=== PATIENT | female | born 1985 | race Asian ===

== ENCOUNTER 2016-10-17 02:24 | Inpatient (IN) | payer OTHER, MEDICARE ==
[~2016-10-17] VITALS: Ht 160 cm; Wt 60.0 kg
--- NOTE | 2016-10-17 02:45 | NUR ---
31yo FEMALE TO TRIAGE W/FATHER WHO STATES "SHE HAS NOT SLEPT IN 3 D AND IS JUMPING FROM ONE SUBJECT TO ANOTHER"
--- NOTE | 2016-10-17 03:16 | ED PSYCHIATRIC COMPLAINT ---
History of Present Illness General Chief Complaint: Altered Mental Status Stated Complaint: PER FATHER PT AMS BH PT DENIES SI NOT SLEEPING Source: patient, family, old records Exam Limitations: clinical condition Vital Signs & Intake/Output Vital Signs & Intake/Output Vital Signs Date Time Temp Pulse Resp B/P Pulse O2 O2 Flow FiO2 Ox Delivery Rate 10/17 1509 91 18 115/65 98 Room Air 10/17 1258 97.8 98 16 127/64 96 Room Air 10/17 1018 98.6 58 16 125/88 99 Room Air 10/17 0613 97.9 89 16 128/73 97 10/17 0248 98.0 90 16 116/86 96 Room Air Allergies Coded Allergies: No Known Allergies (10/17/16) Triage Note: 31yo FEMALE TO TRIAGE W/FATHER WHO STATES "SHE HAS NOT SLEPT IN 3 D AND IS JUMPING FROM ONE SUBJECT TO ANOTHER"5 Triage Nurses Notes Reviewed? yes Onset: several days Duration: day(s):, constant, continues in ED, getting worse Timing: recent history Severity: severe Associated Symptoms: anxiety, impaired concentration, insomnia LMP (ages 10-50): unknown : No Patient currently breastfeeds: No HPI: Several days prior to admission father reports patient has had bizarre behavior thought pattern increased activity decreased sleep with history of bipolar disorder. There is no report of fever chills nausea vomiting diarrhea abdominal pain chest pain shortness of breath headache dysuria rash bleeding homicidal ideation. (MADONNA NOLASCO MD) Past History Travel History Traveled to [place] past 21 day No Medical History Any Pertinent Medical History? see below for history Psychiatric: bipolar disease Surgical History Surgical History: non-contributory Psychosocial History What is your primary language Other Tobacco Use: Never used Family History Hx Contributory? No (MADONNA NOLASCO MD) Review of Systems Review of Systems Constitutional: Reports: no symptoms. EENTM: Reports: no symptoms. Respiratory: Reports: no symptoms. Cardiovascular: Reports: no symptoms. GI: Reports: no symptoms. Genitourinary: Reports: no symptoms. Musculoskeletal: Reports: no symptoms. Skin: Reports: no symptoms. Neurological/Psychological: Reports: see HPI, cognitive dysfunction, confusion. Hematologic/Endocrine: Reports: no symptoms. Immunologic/Allergic: Reports: no symptoms. All Other Systems: Reviewed and Negative (MADONNA NOLASCO MD) Physical Exam Physical Exam General Appearance: well developed/nourished, alert, awake, anxious, severe distress Head: atraumatic, normal appearance Eyes: Bilateral: PERRL, EOMI. Ears, Nose, Throat: normal pharynx, normal ENT inspection, hearing grossly normal Neck: normal inspection, supple Respiratory: normal breath sounds Cardiovascular: regular rate/rhythm Gastrointestinal: soft, non-tender Extremities: normal range of motion Neurological/Psychiatric: no motor/sensory deficits, awake, agitated, alert, anxious, tonguer II-XII nml as tested Appearance/Memory/Insight: disheveled, impaired insight Behavoir/Eye Contact/Speech: uncooperative, compulsive, increased rate of speech Thoughts/Hallucinations: no apparent hallucination, flight of ideas Skin: intact, normal color, warm/dry SAD PERSONS Done? patient not suicidal (GAURAV BRINK,MADONNA) Progress Differential Diagnosis: drug intoxication, drug overdose, drug withdrawal, electrolyte abnormality, hypoglycemia Plan of Care: Orders Procedure Date/time Status Regular Diet 10/17 B Active Admit to inpatient psych 10/17 163 Active Patient Safety Monitor 10/18 303 Active URINE DRUG SCREEN FOR ER ONLY 10/18 303 Complete ETHANOL 10/18 303 Complete COMPREHENSIVE METABOLIC PANEL 10/18 303 Complete CBC WITHOUT DIFFERENTIAL 10/18 303 Complete ED CRISIS PSYCH CONSULT 10/18 303 Active Laboratory Tests 10/17/16 1021: Urine Opiates Screen < 100.00, Methadone Screen < 40, Barbiturate Screen < 60, Ur Phencyclidine Scrn < 6.00, Amphetamines Screen < 100, U Benzodiazepines Scrn < 85, Urine Cocaine Screen < 50, Urine Cannabis Screen < 5.00 10/17/16 0355: Anion Gap 9, Estimated GFR > 60, BUN/Creatinine Ratio 20.0, Glucose 95, Calcium 9.6, Total Bilirubin 0.4, AST 29, ALT 34, Alkaline Phosphatase 55, Total Protein 7.5, Albumin 4.1, Globulin 3.4, Albumin/Globulin Ratio 1.2, CBC w Diff NO MAN DIFF REQ, RBC 4.09 L, MCV 93.8, MCH 31.8 H, RDW 12.7, MPV 8.1, Gran % 56.9, Lymphocytes % 28.8, Monocytes % 9.8 H, Eosinophils % 3.8, Basophils % 0.7, Absolute Granulocytes 4.4, Absolute Lymphocytes 2.2, Absolute Monocytes 0.7 H, Absolute Eosinophils 0.3, Absolute Basophils 0.1, PUBS MCHC 33.9, Serum Alcohol < 10.0 10/17/2016 7:16:09 AM Patient signed out to me by Dr. Nolasco. Pending crisis evaluation and disposition. (TEE GANT MD) Hand-Off Endorsed To: TEE GANT MD Endorsed Time: 0700 Pending: consult, other (drug screen) (MADONNA NOLASCO MD) Departure Departure Disposition: STILL A PATIENT Condition: Stable Clinical Impression Primary Impression: Bipolar disorder with severe paola Referrals: UNKNOWN (PCP/Family) Departure Forms: Customer Survey General Discharge Information (MADONNA NOLASCO MD) Departure Time of Disposition: 1634 Psych Admission Note Psychiatric Admission: I have seen and evaluated ANAY GARCIA. I have also reviewed all the pertinent lab results and diagnostic results. KATHLEEN GARCIAANNA will be admitted to our inpatient Psychiatric unit for treatment and care. (TEE GANT MD)
--- NOTE | 2016-10-17 03:30 | NUR ---
ATTEMPT TO GIVE MEDS PO, PT SPIT THEM BACK INTO GLASS OF WATER
--- NOTE | 2016-10-17 03:40 | NUR ---
MEDICATED WITRH HALDOL,BENADRYL,AND ATIVAN IM
[2016-10-17 04:10] LABS: ABSOLUTE BASOPHIL COUNT 0.1 /CUMM (0.0-0.2); ABSOLUTE EOSINOPHIL COUNT 0.3 /CUMM (0.0-0.7); ABSOLUTE GRANULOCYTE CT 4.4 /CUMM (1.4-6.5); ABSOLUTE LYMPH COUNT 2.2 /CUMM (1.2-3.4); ABSOLUTE MONOCYTE COUNT 0.7 /CUMM (0.10-0.60); BASOPHIL % 0.7 % (0.0-2.0); EOSINOPHIL % 3.8 % (0-5); GRANULOCYTE % 56.9 % (42.2-75.2); HEMATOCRIT 38.4 % (37-47); MEAN CORPUSCULAR HGB 31.8 PG (27.0-31.0); MEAN CORPUSCULAR HGB CONC 33.9 G/DL (33.0-37.0); MEAN CORPUSCULAR VOLUME 93.8 FL (81.0-99.0); MEAN PLATELET VOLUME 8.1 FL (7.4-10.4); PLATELET COUNT 312 /CUMM (130-400); RBC DISTRIBUTION WIDTH 12.7 % (11.5-14.5); RED BLOOD CELL CT 4.09 /CUMM (4.20-5.40); WHITE BLOOD CELL COUNT 7.7 /CUMM (4.8-10.8)
--- NOTE | 2016-10-17 04:50 | NUR ---
SLEEPING AT PRESENT
--- NOTE | 2016-10-17 06:14 | NUR ---
continues to sleep
--- NOTE | 2016-10-17 07:44 | NUR ---
PT CONTINUES TO SLEEP COMFORTABLY. WILL CONTINUE TO MONITOR
--- NOTE | 2016-10-17 09:16 | NUR ---
PT WAKES UP WHEN CALLED, "MY NAME IS SUZZY" WHEN ASKED. PT GOES BACK TO SLEEP
--- NOTE | 2016-10-17 10:27 | NUR ---
PT WOKEN UP. ORIENTED TO PERSON. PT NEEDED TO BE ORIENTED TO PLACE AND DATE. SHE DOES NOT RECALL SERIES OF EVENTS PRIOR TO COMING TO THE ER. SHE REMEMBERS HER DAD BEING WITH HER. PT HELPED TO THE RESTROOM, UA SENT. NOW EATING HER BREAKFAST.
--- NOTE | 2016-10-17 10:41 | NUR ---
PT IS NOW RECALLING MORE ABOUT YESTERDAY. SHE SAYS SHE HASN'T BEEN ABLE TO SLEEP FOR A FEW DAYS AND HER DAD WAS WORRIED. SHE STATES SHE MUST BE EXCITED ABOUT THE [place]ART[place] RACE OF THURSDAY. PT STATES SOMETIMES SHE FORGETS TO TAKE HER MEDS FOR HER BIPOLAR DISORDER BECAUSE SHE GOES TO HER PARENTS HOUSE AND FORGETS TO BRING THEM. PT IS NOW CALM AND WANTS TO GO HOME.
--- NOTE | 2016-10-17 11:15 | NUR ---
ASSUMED CARE OF THIS PATIENT, WHO IS CURRENTLY SLEEPING WITH SITTER PRESENT FOR SAFETY. WILL CONTINUE TO MONITOR
--- NOTE | 2016-10-17 12:58 | NUR ---
PT UP AND TO BATHROOM WITH STEADY GAIT. EATING LUNCH AT THIS TIME, TOLERATING WELL. OFFERS NO PHYSICAL COMPLAINTS. REEDUCATED AND REORIENTED TO PLAN AND MEDS RECEIVED PREVIOUSLY. SITTER PRESENT FOR SAFETY AND VSS. CALM, COOPERATIVE, AND APPROPRIATE FOR SETTING
--- NOTE | 2016-10-17 14:45 | NUR ---
PALLET STONE POSITIONER PRESENT FOR EVALUATION
--- NOTE | 2016-10-17 14:55 | ED PSYCH CRISIS CONSULTATION ---
Crisis Consult Basic Assessment Date of Consult: 10/17/16 Responsible Person/Accompanied By: self Insurance Authorization: Insurance #1: Insurance name: MEDICARE A Phone number: Policy number: [id number] Group number: Authorization number: ED Provider: Patient's ED Provider: MADONNA NOLASCO MD Primary Care Physician: Patient's PCP: UNKNOWN PCP's Phone Number: Current Psychiatrist: Alivia Mcclure [facility] Chief Complaint: Altered Mental Status Patient's Quote: "I was up all night making tea shirts for the [employer]ien green party." Present Illness: Pt is a 31yo female who was brought to the ED by her father Aly Anthony due to concern that she has not slept for 3 night in a row. When pt arrived to the ED staff noted that pt was jumping from one topic to another and was very disorganized.She was medicated with Haldol, Ativan, and Benadryl IM because she spit out her meds in her water. Upon Crisis eval pt was lithargic, but provided little insight into her sx stating that she was up all night for 3 days because she had to make tea shirts for her [employer] green party this weekend. she admitted that she has forgotten to take her psych meds because she has been staying with her parents. Pt denies any SI/HI/SH and requested discharge. Crisis called pt's parents and her father was no home, but Pt's Mother Shira explained that pt was up all night last night rearranging the kitchen and living room. she has been very disorganized and starts things and does not finish. She reports that pt has not been taking her psych meds because she thinks that they don't help. Mom reports that when pt takes her meds she is stable and functions well. Mom also informed that 2 weeks ago pt was so depressed that she barely got out of bed. Mom expresses she is concerned for pt and would like her to be admitted for stabilization. This clinician also spoke with Alivia Hancock APRN who is pt's out pt prescriber from [facility]. She reported that she saw pt 2 weeks ago and she was severely depressed and was having difficulty getting out of bed, so she made some medication changes and she faxed her meds list to crisis and it has been placed in the paper chart. She expressed concern about pt's decompensation stating she has been becoming more and more unstable over the past few weeks and thinks she would like her to be admitted for inpt psych tx. Case reviewed with Dr. Polo of psychiatry and pt will be admitted to [facility]. Pt refused admission and cried hysterically begging not to be admitted because she has a sebastien [employer] Party tomorrow. Therefore the diagnostic assessment is limited and social hx was not able to be done at time of admission. Dr. Polo advised for pt to be placed on a PEC for grave disability. Patient's Address: [address] [place] [address] Other Phone Number: Who Do You Live With? Patient/Self Family/Informants Interviewed: Mom and Care Allergies - Coded Allergies: No Known Allergies (10/17/16) Laboratory Results: Laboratory Tests 10/17/16 1021: Urine Opiates Screen < 100.00, Methadone Screen < 40, Barbiturate Screen < 60, Ur Phencyclidine Scrn < 6.00, Amphetamines Screen < 100, U Benzodiazepines Scrn < 85, Urine Cocaine Screen < 50, Urine Cannabis Screen < 5.00 10/17/16 0355: Anion Gap 9, Estimated GFR > 60, BUN/Creatinine Ratio 20.0, Glucose 95, Calcium 9.6, Total Bilirubin 0.4, AST 29, ALT 34, Alkaline Phosphatase 55, Total Protein 7.5, Albumin 4.1, Globulin 3.4, Albumin/Globulin Ratio 1.2, CBC w Diff NO MAN DIFF REQ, RBC 4.09 L, MCV 93.8, MCH 31.8 H, RDW 12.7, MPV 8.1, Gran % 56.9, Lymphocytes % 28.8, Monocytes % 9.8 H, Eosinophils % 3.8, Basophils % 0.7, Absolute Granulocytes 4.4, Absolute Lymphocytes 2.2, Absolute Monocytes 0.7 H, Absolute Eosinophils 0.3, Absolute Basophils 0.1, PUBS MCHC 33.9, Serum Alcohol < 10.0 Past History Past Medical History Psychiatric: bipolar disease Past Surgical History Surgical History: non-contributory Psychosocial History Strengths/Capabilities: supportive family, engaged in out pt tx Physical Limitations (Interventions): none reported Psychiatric Treatment History Psych Treatment Psychiatric Treatment Yes Inpatient Treatment Yes Outpatient Treatment Yes Location of Treatment [facility], are out pt Reason for Treatment Bipolar Dates of Treatment [facility] 2006 and 2008, Care currently Response to Treatment variable Diagnosis by History: Bipolar Substance Use/Abuse History Drug Use/Abuse Substances Used/Abused No Substance Abuse Treatment Substance Abuse Treatment Past Substance Abuse [place] No Inpatient Treatment No Outpatient Treatment No Current Mental Status Mental Status Orientation: Person, Place, Situation Affect: Anxious, Angry, Broad, Depressed, Labile, Manic, Sad, Variable Speech: Hyper-verbal, Mumbled Neuro-vegetative: Concentration Poor, Energy Increased, Hyperactivity, Sleep Disturbance Appearance Appearance- Dress/Hygiene: well groomed Behaviors Thought Process: Disorganized, Flight of Ideas, Irrational Thought Content: WNL Memory: WNL Insight: Poor SI/HI Risk Assessment Past Suicidal Ideation/Attempts No Current Suicidal Ideation/Att No Past Homicidal Ideation/Att: No Current Homicidal Ideation/Attempts No Degree of Intent: None Gravely Disabled: Lack of Insight, Poor Impulse Control, Poor Judgment Risk Factors: SA/MH hospitalized, poor impulse control, lack of outcome concern Lethality Ratin (mild) PTSD Checklist PTSD Done? pt unable to participate ED Management Sitter: Yes Restraints: No DSM5/PS Stressors/Medical Prob Diagnosis' (DSM 5, Stressors, Medical): Bipolar sev manic F31.13 Current GAF: 20 Departure Disposition Psych Medical Clearance Date: 10/17/16 Medically Cleared at: 1430 Time Started: 1430 Time Ended: 1530 Psychiatrist Consulted: Christ BRINK,Edward Date Disposition Established: 10/17/16 Time Disposition Established: 1529 Plan for Disposition - Modality: Inpatient Psychiatry Facility: [facility] Rationale for Disposition: safety and stabilization Type of IP Admission: PEC Referrals UNKNOWN (PCP/Family)
--- NOTE | 2016-10-17 16:03 | NUR ---
PER PROVIDER RELATIONS SPECIALIST MONSTER PT TO BE ADMITTED ON A PEC
--- NOTE | 2016-10-17 17:47 | IP CRISIS DIAG ASSESS PSYCH ---
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 When pt arrived to the ED staff noted that pt was jumping from one topic to another and was very disorganized.She was medicated with Haldol, Ativan, and Benadryl IM because she spit out her meds in her water. 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 she admitted that she has forgotten to take her psych meds because she has been staying with her parents. Pt denies any SI/HI/SH and requested discharge. Crisis called pt's parents and her father was no home, but Pt's Mother Shira explained that pt was up all night last night rearranging the kitchen and living room. she has been very disorganized and starts things and does not finish. She reports that pt has not been taking her psych meds because she thinks that they don't help. Mom reports that when pt takes her meds she is stable and functions well. Mom also informed that 2 weeks ago pt was so depressed that she barely got out of bed. Mom expresses she is concerned for pt and would like her to be admitted for stabilization. This clinician also spoke with Alivia Hancock APRN who is pt's out pt prescriber from [facility]. She reported that she saw pt 2 weeks ago and she was severely depressed and was having difficulty getting out of bed, so she made some medication changes and she faxed her meds list to crisis and it has been placed in the paper chart. She expressed concern about pt's decompensation stating she has been becoming more and more unstable over the past few weeks and thinks she would like her to be admitted for inpt psych tx. Case reviewed with Dr. Polo of psychiatry and pt will be admitted to [facility]. 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 Therefore the diagnostic assessment is limited and social hx was not able to be done at time of admission. Dr. Polo advised for pt to be placed on a PEC for grave disability. Patient's Address: [address] [place] [address] Other Phone Number: Who Do You Live With? Patient/Self Primary Language? Other Family/Informants Interviewed: [facility] [place] and Care Allergies - Coded Allergies: No Known Allergies (10/17/16) Past History Abuse/Trauma History Trauma History/Current Trauma: unable to assess Psychosocial History Strengths/Capabilities: supportive family, engaged in out pt tx Physical Limitations (Interventions): none reported Psychiatric Treatment History Psych Treatment Psychiatric Treatment Yes Inpatient Treatment Yes Outpatient Treatment Yes Location of Treatment [facility] in, [facility] out pt Reason for Treatment Bipolar Dates of Treatment [facility] 2006 and 2008, [facility] currently Response to Treatment variable Diagnosis by History: Bipolar Risk Factors: SA/MH hospitalized, poor impulse control, lack of outcome concern Substance Use/Abuse History Drug Use/Abuse minimum 12mo Hx Substances Used/Abused No Substance Abuse Treatment Substance Abuse Treatment Past Substance Abuse [place] No Inpatient Treatment No Outpatient Treatment No Current Mental Status Mental Status Orientation: Person, Place, Situation Affect: Anxious, Angry, Broad, Depressed, Labile, Manic, Sad, Variable Speech: Hyper-verbal, Mumbled Neuro-vegetative: Concentration Poor, Energy Increased, Hyperactivity, Sleep Disturbance Appearance Appearance- Dress/Hygiene: well groomed Behaviors Thought Process: Disorganized, Flight of Ideas, Irrational Thought Content: WNL Memory: WNL Insight: Poor SI/HI Risk Assessment - Minimum 6mo History- Past Suicidal Ideation/Attempts No Current Suicidal Ideation/Att No Past Homicidal Ideation/Att: No Current Homicidal Ideation/Attempts No Degree of Intent: None Gravely Disabled: Lack of Insight, Poor Impulse Control, Poor Judgment Risk Factors: SA/MH hospitalized, poor impulse control, lack of outcome concern Lethality Ratin (mild) Needs/Init TX Plan/Goals: safety and stabilization of sx, individual group and family therapy, med eval AUDIT-C Questionnaire: AUDIT-C Questionnaire: Response Value ETOH use in the past year Never 0 # drinks typical/day Doesn't Drink 0 6 or > drinks per occasion Never 0 Total 0 DSM5/PS Stressors/Medical Prob Diagnosis' (DSM 5, Stressors, Medical): Bipolar sev manic F31.13 Current GAF: 20
--- NOTE | 2016-10-17 19:09 | NUR ---
PARENTS AT BEDSIDE. PT REORIENTED TO SITUATION AND REMINDED THAT SHE CANNOT GO HOME PER REQUEST AND WILL BE ADMITTED DOWNSTAIRS. PT REMAINS COOPERATIVE
[2016-10-17 20:15] VITALS: BP 132/74
[2016-10-17] MEDS ORDERED: MIRTAZAPINE7.5 M1 PO (21:32)
[2016-10-17] MEDS ORDERED: INVEGA1.5 MG PO (21:39)
[2016-10-17] MEDS ORDERED: INVEGA6 MG PO (21:40)
[2016-10-17] MEDS ORDERED: LORAZEPAM0.5 M1 PO (21:40)
[2016-10-17] MEDS ORDERED: BUPROPION HCL150 M4 PO (21:41)
[2016-10-17] MEDS ORDERED: [UNRECOGNIZED DRUG - OTHER] PO (22:06)
[2016-10-17] MEDS ORDERED: [UNRECOGNIZED DRUG - OTHER] PO (22:07)
[2016-10-17] MEDS ORDERED: FISH OIL PO (22:08)
[2016-10-17] MEDS ORDERED: CALCIUM PO (22:09)
[2016-10-17] MEDS ORDERED: MELATONIN3 M4 PO (22:10)
[2016-10-17] MEDS ORDERED: TURMERIC PO (22:10)
[2016-10-17] MEDS ORDERED: MULTIVITAMINS1 EAC9 PO (22:10)
--- NOTE | 2016-10-17 23:10 | NUR ---
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 WEINBERG WRITING ADMISSION ORDERS; H&P DONE BY DR. KOO; SKIN INTACT; VITAL SIGNS WNL.
--- NOTE | 2016-10-17 23:11 | History & Physical ---
General Information and HPI MD Statement: I have seen and personally examined ANAY GARCIA and documented this H&P. The patient is a 31 year old F who presented with a patient stated chief complaint of [paola]. Source of Information: patient Exam Limitations: no limitations History of Present Illness: 31 yo F with h/o bipolar disorder is admitted to Inpatient Psychiatry for insomnia, disorganized thoughts and manic episode. Please refer to Psych H and P for full details. She does not have any active medical issues. She reports constipation, but denies abdominal pain, nausea or vomiting. She otherwise feels well. Allergies/Medications Allergies: Coded Allergies: No Known Allergies (10/17/16) Home Med list [AMINO ENERGY] Unknown POW 1 Scoopful PO DAILY VITAMIN SUPPORT (Reported) Bupropion HCl (Bupropion HCl Sr) 150 MG TABLET.ER 150 MG PO BID MOOD STABILITY (Reported) [CALCIUM] 500 MG TABLET 500 MG PO DAILY VITAMIN (Reported) [FISH OIL] Unknown CAPSULE 1 CAP PO DAILY VITAMIN (Reported) Lorazepam 0.5 MG TABLET 0.5 MG PO DAILY PRN ANXIETY (Reported) Melatonin 3 MG TABLET 3 MG PO DAILY PRN SLEEP (Reported) Mirtazapine 7.5 MG TABLET 7.5 MG PO QHS SLEEP HELP (Reported) Multiple Vitamin (Multivitamins) 1 EACH TABLET 1 TAB PO DAILY VITAMIN ( Reported) [MUSCLE DEFENDER] Unknown POWDER 1 Scoopful PO DAILY VITAMIN (Reported) Paliperidone (Invega) 1.5 MG TAB.ER.24 1.5 MG PO DAILY PRN AGITAT/ HALLUCINATION/IRRITABIL (Reported) Paliperidone (Invega) 6 MG TAB.ER.24 6 MG PO AT BEDTIME SCHIZOPHRENIA ( Reported) [TURMERIC] Unknown CAPSULE 1 CAP PO DAILY HEALTH SUPPLEMENT (Reported) Compliance With Home Meds: UNKNOWN Past History Travel History Traveled to [place] past 21 day No Medical History Neurological: NONE EENT: NONE Cardiovascular: NONE Respiratory: NONE Gastrointestinal: NONE Hepatic: NONE Renal: NONE Musculoskeletal: RIGHT KNEE PAIN Psychiatric: bipolar disease Endocrine: NONE Blood Disorders: NONE Cancer(s): NONE JOB PLACEMENT SPECIALIST/Reproductive: PRE-CANCER CERVICAL CELLS History of MRSA: No History of VRE: No History of CDIFF: No Isolation History: Standard Surgical History Surgical History: appendectomy, left ovarian cyst removal Past Family/Social History Family History Relations & Conditions if any MOTHER (Colon cancer). Aunt (Breast cancer). Psychosocial History Where do you live? Home Who Do You Live With? parent Services at Home: None Primary Language: Croatian Smoking Status: Never Smoked ETOH Use: occasional use Illicit Drug Use: denies illicit drug use Functional Ability ADLs Independent: dressing, eating, toileting, bathing. Ambulation: independent Review of Systems Review of Systems Constitutional: Denies: chills, diaphoresis, malaise, weakness. EENTM: Reports: no symptoms. Cardiovascular: Denies: chest pain, orthopena, palpitations. Respiratory: Denies: cough, short of breath, wheezing. GI: Reports: constipation. Denies: abdominal pain, diarrhea, nausea, vomiting. Genitourinary: Denies: dysuria, frequency, hematuria. Musculoskeletal: Reports: no symptoms. Neurological/Psychological: Reports: see HPI. All Other Systems: Reviewed and Negative Exam & Diagnostic Data Last 24 Hrs of Vital Signs/I&O Vital Signs Date Time Temp Pulse Resp B/P Pulse O2 O2 Flow FiO2 Ox Delivery Rate 10/18 2016 98.8 93 128/65 10/18 1552 104 148/84 10/18 1230 88 123/73 10/18 0743 97.5 92 131/53 Physical Exam General Appearance Alert, Oriented X3, Cooperative, No Acute Distress Skin No Breakdown, No Significant Lesion HEENT PERRLA, EOMI, Mucous Membr. moist/pink Neck Supple Cardiovascular Regular Rate, Normal S1, Normal S2, No Murmurs Lungs Clear to Auscultation, Normal Air Movement Abdomen Normal Bowel Sounds, Soft, No Tenderness Neurological Exam Findings: Normal Gait, Normal Speech, Strength at 5/5 X4 Ext, Cranial Nerves 3-12 NL, Reflexes 2+ Cranial Nerves II through XII: Grossly intact Extremities No Edema, Normal Pulses, No Tenderness/Swelling Vascular Normal Pulses, Pulses Symmetrical Last 24 Hrs of Labs/Jasvir: Laboratory Tests 10/19 10/17 10/17 0600 1021 0355 Chemistry Sodium (137 - 145 mmol/L) 141 Potassium (3.5 - 5.1 mmol/L) 4.5 Chloride (98 - 107 mmol/L) 106 Carbon Dioxide (22 - 30 mmol/L) 25 Anion Gap (5 - 16) 9 BUN (7 - 17 mg/dL) 16 Creatinine (0.5 - 1.0 mg/dL) 0.8 Estimated GFR (>60 ml/min) > 60 BUN/Creatinine Ratio (7 - 25 %) 20.0 Glucose (65 - 99 mg/dL) 95 Hemoglobin A1c Pending Calcium (8.4 - 10.2 mg/dL) 9.6 Total Bilirubin (0.2 - 1.3 mg/dL) 0.4 AST (14 - 36 U/L) 29 ALT (9 - 52 U/L) 34 Alkaline Phosphatase (<127 U/L) 55 Total Protein (6.3 - 8.2 g/dL) 7.5 Albumin (3.5 - 5.0 g/dL) 4.1 Globulin (1.9 - 4.2 gm/dL) 3.4 Albumin/Globulin Ratio (1.1 - 2.2 %) 1.2 Triglycerides Pending Cholesterol Pending LDL Cholesterol, Calc Pending HDL Cholesterol Pending Cholesterol/HDL Ratio Pending Hematology CBC w Diff NO MAN DIFF REQ WBC (4.8 - 10.8 /CUMM) 7.7 RBC (4.20 - 5.40 /CUMM) 4.09 L Hgb (12.0 - 16.0 G/DL) 13.0 Hct (37 - 47 %) 38.4 MCV (81.0 - 99.0 FL) 93.8 MCH (27.0 - 31.0 PG) 31.8 H RDW (11.5 - 14.5 %) 12.7 Plt Count (130 - 400 /CUMM) 312 MPV (7.4 - 10.4 FL) 8.1 Gran % (42.2 - 75.2 %) 56.9 Lymphocytes % (20.5 - 51.1 %) 28.8 Monocytes % (1.7 - 9.3 %) 9.8 H Eosinophils % (0 - 5 %) 3.8 Basophils % (0.0 - 2.0 %) 0.7 Absolute Granulocytes (1.4 - 6.5 /CUMM) 4.4 Absolute Lymphocytes (1.2 - 3.4 /CUMM) 2.2 Absolute Monocytes (0.10 - 0.60 /CUMM) 0.7 H Absolute Eosinophils (0.0 - 0.7 /CUMM) 0.3 Absolute Basophils (0.0 - 0.2 /CUMM) 0.1 PUBS MCHC (33.0 - 37.0 G/DL) 33.9 Toxicology Urine Opiates Screen (>2000 NG/ML) < 100.00 Methadone Screen (>300 NG/ML) < 40 Barbiturate Screen (>200 NG/ML) < 60 Ur Phencyclidine Scrn (>25 NG/ML) < 6.00 Amphetamines Screen (>1000 NG/ML) < 100 U Benzodiazepines Scrn (>200 NG/ML) < 85 Urine Cocaine Screen (>300 NG/ML) < 50 Urine Cannabis Screen (>50 NG/ML) < 5.00 Serum Alcohol (<10 MG/DL) < 10.0 Laboratory Tests 10/19/16 0600: Hemoglobin A1c Pending, Triglycerides Pending, Cholesterol Pending, LDL Cholesterol, Calc Pending, HDL Cholesterol Pending, Cholesterol/HDL Ratio Pending Diagnostic Data EKG Results -- CXR Results -- Assessment/Plan Assessment: 31 yo F with h/o bipolar disorder admitted for management of manic episode. Continue management per Psych team. No active medical issues. Bowel regime given for constipation. DVT ppx - low risk, early ambulation. As Ranked By This Provider Problem List: 1. Bipolar disorder with severe paola Miscellaneous Miscellaneous Documentation Attending Case Discussed With: Mariel Martinez MD Primary Care Physician: UNKNOWN Patient sees these Specialists -- Level of Patient Care: FLORY Verma MD Review Statement Attending Statement Attending MD Statement: examined this patient, discuss w/resident/PA/ENGINEER BYPRODUCT
--- NOTE | 2016-10-18 06:47 | NUR ---
PATIENT WAS RESTLESS DURING THE NIGHT, TOSSING AND TURNING; UNAVOIDABLE NOISE DISTURBANCE MAY HAVE BEEN CONTRIBUTING FACTOR.
[2016-10-18 07:43] VITALS: BP 131/53
[2016-10-18 12:30] VITALS: BP 123/73
--- NOTE | 2016-10-18 13:29 | NUR ---
PT IS COMPLIANT AND COOPERATIVE. MOOD IS STABLE WITH A FULL RANGE OF AFFECT. PT DENIES SI AT THIS TIME, C/O SOME PAIN IN NECK. PT IS SLIGHTLY HYPERVERBAL BUT PLEASANT AND APPROPRIATE. PT IS SOCIALIZING WELL WITH PEERS AND STAFF. PT IS ATTENDING GROUPS. VITALS ARE STABLE, APPETITE IS GOOD.
[2016-10-18 15:52] VITALS: BP 148/84
--- NOTE | 2016-10-18 17:41 | CPS MD/APRN INITIAL ASSE PSYCH ---
Psychiatric Admission Radiological Equipment Specialist's Note Reviewed: Yes Patient Seen and Examined: Yes Identifying Information: 31 y/o domiciled, unemployed woman with history of bipolar disorder brought in by her father Chief Complaint: "I wasn't sleeping " Reaction to Hospitalization: Per notes, initially hysterical about being admitted to the hospital, today reports that she is appreciative of her treatment History of Present Illness Onset of Illness: Reports a few days to week of reduced to absent sleep with increased activity, increased talkativeness. This occurs a few weeks after severe depressive symptoms and in the context of medication changes. Circumstances Leading to Admission: Poor medication compliance, medication changes Problem(s) Justifying Need for Admission: Grave disability due to symptoms consistent with paola Past Psychiatric History Past Diagnosis(es)- if any: Bipolar disorder, unspecified Past Precipitating Factors- if any: Unknown - Include inpatient and outpatient treatment Treatment History: Current patient at care with Sisi Hancock APRN. Previous inpatient psychiatric treatment at [facility]. History of Suicide Attempts or Gestures Denies Substance Abuse History: Denies Allergies: Coded Allergies: No Known Allergies (10/17/16) Home Med List: Home Med list [AMINO ENERGY] Unknown POW 1 Scoopful PO DAILY VITAMIN SUPPORT (Reported) Bupropion HCl (Bupropion HCl Sr) 150 MG TABLET.ER 150 MG PO BID MOOD STABILITY (Reported) [CALCIUM] 500 MG TABLET 500 MG PO DAILY VITAMIN (Reported) [FISH OIL] Unknown CAPSULE 1 CAP PO DAILY VITAMIN (Reported) Lorazepam 0.5 MG TABLET 0.5 MG PO DAILY PRN ANXIETY (Reported) Melatonin 3 MG TABLET 3 MG PO DAILY PRN SLEEP (Reported) Mirtazapine 7.5 MG TABLET 7.5 MG PO QHS SLEEP HELP (Reported) Multiple Vitamin (Multivitamins) 1 EACH TABLET 1 TAB PO DAILY VITAMIN ( Reported) [MUSCLE DEFENDER] Unknown POWDER 1 Scoopful PO DAILY VITAMIN (Reported) Paliperidone (Invega) 1.5 MG TAB.ER.24 1.5 MG PO DAILY PRN AGITAT/ HALLUCINATION/IRRITABIL (Reported) Paliperidone (Invega) 6 MG TAB.ER.24 6 MG PO AT BEDTIME SCHIZOPHRENIA ( Reported) [TURMERIC] Unknown CAPSULE 1 CAP PO DAILY HEALTH SUPPLEMENT (Reported) - Include any medical condition(s) that may - impact the patient's recovery/remission Past Medical History: as above Past History Medical History Neurological: NONE EENT: NONE Cardiovascular: NONE Respiratory: NONE Gastrointestinal: NONE Hepatic: NONE Renal: NONE Musculoskeletal: RIGHT KNEE PAIN Psychiatric: bipolar disease Endocrine: NONE Blood Disorders: NONE Cancer(s): NONE 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/Reproductive: PRE-CANCER CERVICAL CELLS History of MRSA: No History of VRE: No History of CDIFF: No Isolation History: Standard Surgical History Surgical History: non-contributory Psychiatric Family/Social Hx Family History Psychiatric Illness: unknown Substance Use: unknown Suicides: unknown Social History Living Situation: lives in public assisted housing Significant Relationships (family/friends): Supportive family in area Education: Reports having a bachelor's of nursing degree 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 - #1 Recognizing dangerous situations. - #2 Coping Skills. - #3 Basic information about quitting. Status of Tobacco Cessation Counseling: N/A B/C NO TOB USE Cessation Med Status: No Tobacco Use last 30d Alcohol Screening - ETOH screen POS if BAL >=80 or Audit-C>= M4/F3 Audit-C Score from Diag Assess: 0 Blood Alcohol Level: Laboratory Tests 10/17 0355 Toxicology Serum Alcohol (<10 MG/DL) < 10.0 Alcohol Use Screening Results: Neg per Audit C &/or BAL - If ETOH counseling indicated - the following topics are required. - #1 Express concern about the patient's - drinking at unhealthy levels, include informing - of national norms for moderate drinking: - men <= 14 drinks/week, max 4 drinks/occasion - women <= 7 drinks/week, max 3 drinks/occasion - #2 Providing feedback, including linking alcohol to - negative physical effects (liver injury, hypertension) - negative emotional effects (relationship problems and - depression) - negative occupational consequences (reduced work - performance) - #3 Advising the patient to abstain from alcohol or - to drink below national norms for moderate drinking - (as listed above). Status of ETOH Use Counseling: N/A B/C NO ETOH Use Metabolic Screening - Screen if on a Neuroleptic Medication - Metabolic screening should include: - Blood Pressure, BMI, Glucose or Hgb A1c, & a - Lipid profile from within the past 365 days. Metabolic Screening () Patient on a neuroleptic(s) . Enter below results for Glucose or Hemoglobin A1C, and lipid panel if obtained during the last 365 days. BMI: 23.400 Blood Pressure: 148/84 Laboratory Results (If applicable): Will order appropriate laboratory testing Exam and Plan Mental Status Examination Ambulation Status: Stable Appearance: Adequately groomed, wearing hospital scrubs. Attitude towards examiner: Cooperative Psychomotor activity: Slowed Behavior: Mildly inappropriate, consistently smiling at this examiner any time I was seen on the unit Quality of speech: Quiet Affect: Constricted Mood: "Better " Suicidal Ideation: Denies Homicidal Ideation: Denies Hallucinations: Denies Paranoid/Delusional Material: Denies Difficulties with thought organization: Mildly circumstantial Insight: Limited Judgment: Limited Orientation: To person, place, time, situation Cognition: Grossly intact Memory Function: Grossly intact Estimate of intellectual functioning: Average Assets/Strengths Patient Identified Assets/Strengths: Supportive family Impression/Plan Impression and Plan: 31-year-old woman with history of bipolar disorder presenting with manic symptoms resulting in grave disability in the context of mentation changes as well as poor medication compliance. - Include all active medical diagnosis that require tx DSM 5 Diagnosis(es): Bipolar disorder, most recent episode manic, moderate - Initial Tx Plan for Active Psych & Medical Conditions Treatment Plan: Admit to [facility] 15 minute checks appropriate Continue outpatient medications with the exception of replace Invega with risperidone 4 mg at bedtime Titrate down Wellbutrin will continue 150 for today Further collateral from outpatient providers as well as family - Factors that would help patient function - in a less restrictive setting. Factors: Mood stability, able to take care of self independently
[2016-10-18 20:17] VITALS: BP 128/65
--- NOTE | 2016-10-18 21:53 | NUR ---
PT IS CALM, COOEPRATIVE WITH STAFF AND PEERS, AND COMPLIANT WITH UNIT RULES. PT IS OFTEN IN [place], INTERACTING WELL WITH OTHERS. MOOD IS STABLE, AFFECT APPEARS EUTHYMIC TO FULL RANGE, AT MOMENTS APPEARING BRIGHT. COMMUNICATION IS ORGANIZED AND NORMAL IN ALL RESPECTS. PT DENIES SI AT THIS TIME.
--- NOTE | 2016-10-19 05:15 | NUR ---
PT SLEPT UNTIL 0200, THEN WAS UP FOR THE REST OF THE NIGHT. PT RECEIVED MELATONIN 3 MG PRN AT 0230, WARM MILK, A HOT COMPRESS FOR HER RIGHT CALF. PT APPEARS ANXIOUS, DENIES SI.
--- NOTE | 2016-10-19 06:55 | Admission Certification ---
Admission Certification Certification Statement - As attending physician, I certify that at the time of - admission, based on clinical presentation, severity of - symptoms, need for further diagnostic testing and - therapeutic interventions, and risk of adverse outcomes - without in-hospital treatment, in my clinical assessment, - this patient requires an acute hospital stay for a minimum - of two nights or longer. I have also considered psychsocial - factors such as support system, advanced age, financial - issues, cognitive issues, and failed out-patient treatments, - past re-admission history, safety of patient, and lack of - compliance as applicable. Specific rationale supporting this admission is: Bipoalr disorder, paola.
[2016-10-19 07:48] VITALS: BP 112/65
--- NOTE | 2016-10-19 10:42 | CP SOUTH PROGRESS NOTE PSYCH ---
Psych (Inpt) Progress Note Progress Note Include the following elements, when applicable: Involvement in the active treatment of the patient with behavioral observations of the patient and the patient's response to the treatment. Review of the ongoing treatment process in the context of the treatment plan. Indication of how multi-disciplinary staff members are carrying out the treatment plan. Plans for future interventions and recommendations for revision of the treatment plan. Liaison with other physicians/providers. Progress Note: Chart reviewed, progress d/w nursing staff. Interivewed this am. Pleasant, cooperative. SAys didn't sleep well last night and was up around 3AM. Does say however this is much improved compared to the few days before the hospital. Says she is no longer feeling manic symptoms and "now I'm just pretty tired". Denies SI/HI or AVH. Denies medication side effects. Vitals reviewed and wnl. Lipid panel returned and largely wnl. MSE: pleasant, adequately groomed female wearing hospital scrubs. Good eye contact. Speech childlike in quality. Fully interruptable, non-pressured. Mood "I'm a little tired'. Affect constricted though full range, non-labile, congruent. TP mildly impoverished. TC wnl. Denies SI/HI. Denies AVH. Cognition grossly intact. I/J limited-fair. A/P: Symptoms of paola seem to be improving though sleep remains impaired. Tolerating risperdal well. Continue present management.
--- NOTE | 2016-10-19 11:36 | NUR ---
PT IS SOCIAL AND APPROPRIATE THUS FAR WITH PEERS AND STAFF HOWEVER IS SEEN/HEARD GIGGLING OFTEN AND EASILY STIMULATED YET REDIRECTABLE AND AWARE OF LIMITS WHEN ASSISTED, PLEASANT, COOPERATIVE, ATTENDING GROUPS - REPORTING GOOD MOOD AND WAS AWAKE EARLY WITH A GOAL FOR THE DAY TO ADVOCATE FOR SELF BETTER AND LOOKING FORWARD TO VISIT WITH THE FAMILY, NO ISSUES OR CONCERNS REPORTED OR OBSERVED.
[2016-10-19 11:59] VITALS: BP 117/67
[2016-10-19 15:32] VITALS: BP 138/91
--- NOTE | 2016-10-19 17:55 | SOCIAL WORKER SOCIAL HX PSYCH ---
Social History Basic Assessment Insurance Authorization: Insurance #1: Insurance name: MEDICARE [employer] Phone number: Policy number: [id number] Group number: Authorization number: Curr Source of Income/Entitlements: SSDI Primary Care Physician: Patient's PCP: UNKNOWN PCP's Phone Number: Language(s) Spoken At Home: [place]veline Living Situation Rents or Owns Home? rents Feel Safe Where You Are Living Yes Feel Safe in Relationships? Yes Allergies - Coded Allergies: No Known Allergies (10/17/16) Current Medications - Scheduled Medications [AMINO ENERGY] Unknown POW 1 Scoopful PO DAILY VITAMIN SUPPORT (Reported) Entered as Reported by JACKIE LEE on 10/17/162205 Bupropion HCl (Bupropion HCl Sr) 150 MG TABLET.ER 150 MG PO BID MOOD STABILITY #60 (Reported) Entered as Reported by JACKIE LEE on 10/17/162140 [CALCIUM] 500 MG TABLET 500 MG PO DAILY VITAMIN (Reported) Entered as Reported by JACKIE LEE on 10/17/162208 [FISH OIL] Unknown CAPSULE 1 CAP PO DAILY VITAMIN (Reported) Entered as Reported by JACKIE LEE on 10/17/162207 Mirtazapine 7.5 MG TABLET 7.5 MG PO QHS SLEEP HELP #30 (Reported) Entered as Reported by JACKIE LEE on 10/17/162131 Multiple Vitamin (Multivitamins) 1 EACH TABLET 1 TAB PO DAILY VITAMIN ( Reported) Entered as Reported by JACKIE LEE on 10/17/162209 [MUSCLE DEFENDER] Unknown POWDER 1 Scoopful PO DAILY VITAMIN (Reported) Entered as Reported by JACKIE LEE on 10/17/162206 Paliperidone (Invega) 6 MG TAB.ER.24 6 MG PO AT BEDTIME SCHIZOPHRENIA #30 ( Reported) Entered as Reported by JACKIE LEE on 10/17/162139 [TURMERIC] Unknown CAPSULE 1 CAP PO DAILY HEALTH SUPPLEMENT (Reported) Entered as Reported by JACKIE LEE on 10/17/162209 Scheduled PRN Medications Lorazepam 0.5 MG TABLET 0.5 MG PO DAILY PRN ANXIETY #30 (Reported) Entered as Reported by JACKIE LEE on 10/17/162139 Melatonin 3 MG TABLET 3 MG PO DAILY PRN SLEEP (Reported) Entered as Reported by JACKIE LEE on 10/17/162209 Paliperidone (Invega) 1.5 MG TAB.ER.24 1.5 MG PO DAILY PRN AGITAT/ HALLUCINATION/IRRITABIL #30 (Reported) Entered as Reported by JACKIE LEE on 10/17/162138 Past History Past Medical History Neurological: NONE EENT: NONE Cardiovascular: NONE Respiratory: NONE Gastrointestinal: NONE Hepatic: NONE Renal: NONE Musculoskeletal: RIGHT KNEE PAIN Psychiatric: bipolar disease Endocrine: NONE Blood Disorders: NONE Cancer(s): NONE CLAIM 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 No Mother's Age (Current/): 67 Relationship w/Mother: good Father's Age (Current/): 67 Relationship w/Father: good Any Sibling(s)? Yes Sibling's Gender(s)/Age(s): male Sibling 1:, male Sibling 2: Relationship w/Sibling(s): good, one brother lives with parents in [place] the other lives in [place] Relationship w/Friends: have one good friend Family Psych/Sub Abuse/Add Hx: diagnosis Number of Pregnancies: 0 Number of Miscarriages: 0 Number of Abortions: 0 Other Comments: Mom and eldest brother have bipolar d/o Abuse/Trauma History Trauma History/Current Trauma: Denies Legal History Current Legal Status: none Psychosocial History Primary Support System: father, mother, sibling(s), friend Strengths/Capabilities: supportive family, engaged in out pt tx Weaknesses: lack of sleep, lack of insight to triggers, obsessive behaviors Physical Limitations (Interventions): none reported Last Physical: 2016 History of Seizures? No History of Blackouts? No ADL Limitations: denies [place]/Social/Peer Relations they got to coffee shops together and talk Meaningful Activities: hiking, sebastien, coffee shops Childhood Sabianism: Taoist Current Gnosticist Affiliation: Taoist Is Spirituality Important to You? yes Patient's Ethnicity: Ting Cultural/Ethnic Issues: denies/ [place] 1998 Are There Developmental Issues? No Milestones Achieved: fine motor, gross motor Psychiatric Treatment History Psych Treatment Inpatient Treatment Yes Outpatient Treatment Yes Location of Treatment [facility], are out pt Reason for Treatment Bipolar Dates of Treatment [facility] 2006 and 2009, Care currently Response to Treatment variable Precipitating Factors: lack of sleep/paola Current Hand Candy Molder: care Diagnosis: Bipolar Psychodynamic Issues: lives alone on disability has supportive family and is in tx Risk Factors: SA/MH hospitalized, poor impulse control, lack of outcome concern Substance Use/Abuse History Drug Use/Abuse Substance Used/Abused No History Substance Abuse Treatment Substance Abuse Treatment Inpatient Treatment No Outpatient Treatment No Sexual History Sexually Active No Sexual Orientation Heterosexual Sexual Concerns: none Education History Highest Level of Education: bachelor's degree Highest Grade Completed: bachelors in nursing Number of College Years: 4 College Degree/Major: nursing Preferred Learning Style: experiential HX of Learning Difficulties: None reported Barriers to Learning: None reported Special Communication Needs: None reported Employment History Employment Disability Not in Labor Force: Disabled No. of Jobs in Last 5 Years: 0 History Have You Been in The ? No Current Mental Status Mental Status Orientation: Person, Place, Situation Affect: Anxious, Angry, Broad, Depressed, Labile, Manic, Sad, Variable Speech: Hyper-verbal, Mumbled Neuro-vegetative: Concentration Poor, Energy Increased, Hyperactivity, Sleep Disturbance Appearance Appearance- Dress/Hygiene: well groomed Behaviors Thought Process: Disorganized, Flight of Ideas, Irrational Thought Content: WNL Memory: WNL Insight: Poor SI/HI Risk Assessment Past Suicidal Ideation/Attempts No Current Suicidal Ideation/Att No Past Homicidal Ideation/Att: No Current Homicidal Ideation/Attempts No Degree of Intent: None Gravely Disabled: Lack of Insight, Poor Impulse Control, Poor Judgment Lethality Ratin (mild) - Conclusion and Recommendations for treatment - and discharge planning
--- NOTE | 2016-10-19 18:27 | SOCIAL WORKER PROG NOTE PSYCH ---
Social Work Progress Note Progress Note Pt was cooperative, she was asleep when I approached her. She asked if we could complete this quickly as she was feeling very tired. We agreed and she went back to sleep when she was done with evaluation.
[2016-10-19 20:07] VITALS: BP 140/67
--- NOTE | 2016-10-19 22:05 | NUR ---
PT IS CALM, COOPERATIVE WITH STAFF AND PEERS, AND COMPLIANT WITH UNIT RULES. PT IS OFTEN IN MILIEU, INTERACTING WELL WITH OTHERS. MOOD IS STABLE, AFFECT IS BRIGHT TO FULL RANGE, COMMUNICATION IS ORGANIZED AND APPEARS NORMAL IN ALL RESPECTS, AND APPETITE IS NORMAL. PT DENIES SI AT THIS TIME.
--- NOTE | 2016-10-20 06:08 | NUR ---
PT APPEARED TO SLEEP BETTER LAST NIGHT.
[2016-10-20 07:58] VITALS: BP 127/88
--- NOTE | 2016-10-20 09:36 | SOCIAL WORKER PROG NOTE PSYCH ---
Social Work Progress Note Progress Note Phoned Mr. Aly Anthony, Father of Key and scheduled a family meeting for Tiesha. 10/21/16 at 3:30pm. Mr. Anthony, his , Shira and PT's brother, Trey will be attending. PT signed GLENN for all of the above family. Met with Key this morning, she stated she has no SI/HI, no psychosis. She reported she slept well last night, "like a baby." She stated she thinks she wasn't taking her medication for the past week. She apologized for not taking her medication and stated, "i'm sorry, I didn't do it on purpose." She resides in her own apartement (alone), is not in any relationship with a significant other, identifies as heterosexual. She stated she has been disabled since 2011, due to Bipolar. 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 She has not worked in the past 5yrs - last worked in 2007. She reports she gets along with her parents, and (2) brothers. Her brother, Trey 37yo lives with her parents and does not work. She stated her Mother and brother, Trey are Bipolar and are on medication. Her other brother, 36yo lives in [place]. Key is in treatment with [facility] with Sisi Sawant APRN, and Dena Brooks LCSW. SHe also has a embedded case manager, Bekah at [facility]. She stated she "felt overwhelmed over the past couple weeks - there was toomuch going on...she stated people were asking too much of her. 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 Key stated she likes to workout - and enjoys [place], Yoga, Spinning and hiking. She has alot of friends. She denies substance use - drinks occasionally - last drank a glass of wine 3 months ago. 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 She stated this was resolved.
[2016-10-20 12:26] VITALS: BP 107/64
--- NOTE | 2016-10-20 14:22 | NUR ---
PT HAS BEEN VISIBLE IN THE MILIEU TODAY. HER GOAL TODAY WAS TO ADVOCATE FOR SELF, AND ATTEND GROUPS. SHE HAS BEEN MAKING HER SECOND GOAL, WHICH WAS TO ATTEND GROUPS IN WHICH SHE HAS BEEN. PT HAS SOME INTERACTIONS WITH BOTH PEERS AND STAFF. SHE HAS BEEN COMPLIANT WITH STAFF DIRECTION, AND DENIES THOUGHTS OF HURTING HERSELF WHEN ASKED.
[2016-10-20 16:08] VITALS: BP 135/67
--- NOTE | 2016-10-20 16:15 | CP SOUTH PROGRESS NOTE PSYCH ---
Psych (Inpt) Progress Note Progress Note Include the following elements, when applicable: Involvement in the active treatment of the patient with behavioral observations of the patient and the patient's response to the treatment. Review of the ongoing treatment process in the context of the treatment plan. Indication of how multi-disciplinary staff members are carrying out the treatment plan. Plans for future interventions and recommendations for revision of the treatment plan. Liaison with other physicians/providers. Progress Note: PSYCHIATRIST NOTE, 10/20/2016: I discussed this patient's presentation, progress thus far, current mental status, treatment and discharge planning with staff team today in the daily morning ITTM and met with her myself in individual session. Patient was able to remember me from almost exactly 10 years ago but had trouble telling me whether she had had any psych admissions following her previous ones here in 2006 and 2008. Patient was satisfied with the changes made to her medication regimen by Dr. Donald over the weekend (switching from Invega to Risperdal); I added a PRN of low dose Zyprexa while discontinuing PRN Ativan, trazodone, Risperdal. When on [facility] she had been discharged both times on Rochelle carbonate (900mg/day) and Abilify (20-30mg/day); she did not recall more than that she thought her appetite increased on Li+ but was not eager for a retrial at this time. I hope we will be able to obtain much more history from patient's parents and brother in the family meeting currently planned for tomorrow, 10/21/2016 at 3:30pm; apparently, her mother and brother who will be at the meeting (Trey) have been diagnosed with bipolar disorder; it will be helpful to obtain their histories of medication response; if possible, I would like to see this patient back on a primary mood stabilizer. 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
[2016-10-20 19:39] VITALS: BP 142/72
--- NOTE | 2016-10-20 21:28 | NUR ---
PT COOPERTAIVE WITH STAFF AND APPERS, AND COMPLIANT WITH UNIT RULES. PT IS OFTEN IN [place] AND IS INTERACTING WELL WITH OTHERS. MOOD IS STABLE, AFFECT IS BRIGHT TO FULL RANGE, COMMUNICATION IS ORGANIZED AND APPEARS NORMAL IN ALL RESPECTS, AND APPETITE IS NORMAL. PT DENIES SI AT THIS TIME.
--- NOTE | 2016-10-21 04:03 | NUR ---
did not sleep well OOB x 3 0400 c/o headache Tylenol given.
[2016-10-21 07:25] VITALS: BP 132/75
--- NOTE | 2016-10-21 11:44 | SOCIAL WORKER PROG NOTE PSYCH ---
Social Work Progress Note Progress Note Completed online auth via [facility] auth pended: [id number]
[2016-10-21 12:30] VITALS: BP 123/87
--- NOTE | 2016-10-21 13:06 | NUR ---
PT HAS BEEN COMPLIANT AND COOPERATIVE WITH UNIT RULES. PT HAS BEEN OUT IN COMMUNITY INTERACTING WELL WITH STAFF AND PEERS. PT IS ATTENDING GROUPS. PT COMMUNICATION IS LOUD AT TIMES AND NEEDS TO BE REMINDED TO KEEP VOICE DOWN. PT MOOD IS STABLE WITH A FULL RANGE, BRIGHT AFFECT. PT DENIES SI THOUGHTS.
--- NOTE | 2016-10-21 14:04 | SOCIAL WORKER TX PLAN PSYCH ---
Treatment Plan - Please Document: - Evidence that there is ongoing collaboration between - the patient and the interdisciplinary team, - including the patient's active participation and - responsibility for engaging in the treatment regimen, - and that the treatment plan is individualized and - relevant to the patient's conditions. - Treatment plan should reflect documentation indicating - that all active therapeutic efforts are included. Strengths/Capabilities: supportive family, engaged in out pt tx Physical Limitations (Interventions): none reported DSM5/PS Stressors/Medical Prob Diagnosis' (DSM 5, Stressors, Medical): Bipolar sev manic F31.13 Current GAF: 20 Treatment Team - Responsibilities of members of the treatment team include: - Medication Management- MD or ASSISTANT TO THE PRESIDENT - Medication Administration and Monitoring- Nurse - Group Therapy- Occupational Therapist - 1:1 Therapy,Disch Planning,family involvement-Cardiac Care Nurse
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
--- NOTE | 2016-10-21 16:52 | SOCIAL WORKER PROG NOTE PSYCH ---
Social Work Progress Note Progress Note Patient and family met with Dr Polo and myself, along with medical student sitting in. Mother and brother are both in treatment at [facility], and father seems to try to keep everything stable. Mother is very pleasant and was attentive throughout. Brother had made comment prior to meeting, indicating that patient was likely to be here 2 more weeks, which upset patient and she started meeting on a negative note. Patient was labile and somewhat contradictory during meeting. At one point she thanked her family for bringing her to the hospital, but, moments later criticized them for not respecting her wishes and not bringing her to her home, as she has her own apartment. Much discussion focused on medication and the pros and cons of [place] versus Invega and risrdol. Depakote was also discussed as a potential medicine. There was also some question about whether or not she was actually taking her meds as she does live alone and has no VNA. Patient very emotional throughout despite attempts at reassurance and appeasement; and patient expressed anger about being in the hospital. Patient was tearful, and then left meeting; then came back to apologize, but did not return to meeting, which was essentially over at that point. Patient wanted to put in 3 day paper which was o. k d; however she is on a PEC until 11-01-16. Will attempt to get more information and records from [facility]
[2016-10-21 20:08] VITALS: BP 148/67
--- NOTE | 2016-10-21 21:51 | NUR ---
PATIENT ALERT AND ORIENTED X3; [facility], SOCIALIZING WITH PEERS AT TIMES; AFFECT STILL SOMEWHAT BLUNTED, MOOD QUIET; PATIENT ATTENDED WRAP UP MEETING; VITAL SIGNS WNL; PATIENT DENIES SUICIDAL IDEATION AND INTENT; VITAL SIGNS WNL.
--- NOTE | 2016-10-22 06:00 | NUR ---
PATIENT AWAKE ALL NIGHT; ALL PRN MEDICATIONS GIVEN WITH NO EFFECT; PATIENT APPEARING HYPOMANIC, RESTLESS; PRN TYLENOL GIVEN FOR RIGHT KNEE/CALF PAIN WITH POOR EFFECT; NO SIGNS OF DVT OR OTHER OBSTRUCTION NOTED; LIMB WARM TOUCH, PINK, WITH +2 PULSE; PATIENT HAD FULL RANGE OF MOTION OF ALL FOUR LIMBS; DR. HOLLIS CAME TO UNIT AND EXAMINED THE PATIENT; A ONE TIME ORDER OF MOTRIN 400MG ORDERED; PATIENT REPORTED A PAIN REDUCTION AFTER THIS DOSE.
[2016-10-22 07:55] VITALS: BP 118/73
[2016-10-22 12:23] VITALS: BP 124/68
--- NOTE | 2016-10-22 13:17 | CP SOUTH PROGRESS NOTE PSYCH ---
Psych (Inpt) Progress Note Progress Note Include the following elements, when applicable: Involvement in the active treatment of the patient with behavioral observations of the patient and the patient's response to the treatment. Review of the ongoing treatment process in the context of the treatment plan. Indication of how multi-disciplinary staff members are carrying out the treatment plan. Plans for future interventions and recommendations for revision of the treatment plan. Liaison with other physicians/providers. Progress Note: PSYCHIATRIST NOTE, 10/22/2016: I discussed this patient's slow progress to date, current mental status, treatment and discharge planning with staff team today in the daily morning ANAHY and Ernestine Huntley LCSW, and I met with her together in individual session. The first thing patient did was apologize for her "outbursts" during yesterday's family meeting; I told her that it was clear that she was upset at the time and certainly for good reason(s), but that I did not know what those reasons were, but my guess is that it had something to do with the way her family members were reacting, or more correctly "not reacting" to her upset; in fact, I recalled that the more upset/distraught she became the more nonchalant her parents and brother, particularly mother and brother appeared to be; patient seemed to be carrying/bearing all the affect (and worry/concern) for her nuclear family; yesterday may have been premature for patient to attend a family meeting, given her family dynamics. Patient continued to agree to making a transition from [facility] to the [facility] and also to continue on current [place] (re-)trial; she was titrated up to 600mg/day today. Patient is tolerating the upward titration in dose of Zyprexa well to date; in addition to 10mg HS last night she took an additional 5mg of PRN Zyprexa for sleep after midnight last night with benefit; I plan to increase the regular dose tonight to a total of 15mg.
--- NOTE | 2016-10-22 14:20 | NUR ---
PT HAS BEEN VISIBLE IN THE MILIEU THROUGHOUT THE SHIFT. HER GOAL WAS TO "STABALIZE MOOD, AND ATTEND ALL GROUPS". PT HAS BEEN SEEN IN MOST GROUPS TODAY. SHE INTERACTS WITH HER PEERS APPROPRIATELY, AND COOPERATIVE WITH STAFF DIRECTION. PT DENIES HAVING ANY THOUGHTS OF HURTING SELF WHEN ASKED.
--- NOTE | 2016-10-22 14:29 | SOCIAL WORKER PROG NOTE PSYCH ---
Social Work Progress Note Progress Note Discussed Key in team meeting with Dr. Polo and staff on her progress. Met with Dr. Polo and Key together this afternoon. She stated how the meting was difficult for her with her parents and brother - and how "sometimes I have to get angry to be heard in my family." She did state how frustrated she was with her brother how he "doesn't do any chores aroung the house." Discussion was around limiting her time with her parents and brother as she may be spending too much time with them - "I see them everyday." Key agreed and plans to try to see her parents 2x per week, rather than 7 days per week - and fill her time with other healthy activites and getting together with friends. Key was rather reflective about how she was in the meeting yesterday, she stated she can be this way - upset around her family "about old hurts, and my family doesn't like to talk about things." Key was reminded to politely and calmly advocate for herself - practice on the unit - (rather then retreating or going to the other extreme - having an outburst). Dr. Polo validated her feelings, and how Key expresses the emotion for the family. Key denied having any SI/HI, no psychosis. Her thoughts were logical and organized, she asked good questions about her medications and seemed satisfied with the support and validation. She agreed to attend and IOP program as well. Dr. Polo informed Key she is staying the weekend. I phoned Acacia Burks at [facility] and left her a voicemail with an update on her progress, and likely recommend IOP. Acacia returned my call and left a voicemail stating Sisi Sawant APRN wanted to make medication adjustments when noticed Key was decompensating about 2 weeks ago, but Key refused any changes regarding the Invega. Bekah - case folder from [facility] came to the unit to meet with Key today. I spoke with Bekah afterwards and she plans to meet with Key 2x per month ( if Key allows this), and agrees that IOP could benefit Key. [facility] has a IOP as well as [facility].
[2016-10-22 16:05] VITALS: BP 125/64
[2016-10-22 19:38] VITALS: BP 120/69
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
--- NOTE | 2016-10-23 07:28 | NUR ---
PT WAS VERY DEMANDING AND ANGRY. PT INSISTED ON IMMEDIATE ASSISTANCE. PT DEMEANING OF STAFF TO OTHER PATIENTS, ATTEMPTING TO SPLIT STAFF. PT STATED SHE WOULD BE BETTER OFF AT HOME WHERE SHE COULD TAKE CARE OF HER MANY NEEDS.
[2016-10-23 07:34] VITALS: BP 110/83
--- NOTE | 2016-10-23 11:29 | SOCIAL WORKER PROG NOTE PSYCH ---
Social Work Progress Note Progress Note Patient is exhibiting mood variability. She attended group; then was very pleasant during out one to one. Staff report that she had been up all night and that she was doing staff splitting, speaking very badly about some staff. patient has been complaining that her needs are not being met here, Irritable; but, then can be pleasant. Patient's medication is being adjusted, and her [place] is being increased. Patient will require additional time to stabilize. Patient is looking forward to getting discharged, but did not make a major issue of that today--so far.
[2016-10-23 12:24] VITALS: BP 107/71
--- NOTE | 2016-10-23 13:57 | NUR ---
PT IS COMPLIANT AND COOPERATIVE. MOOD IS STABLE WITH A CONSTRICTED AFFECT. PT DENIES SI AT THIS TIME, C/O KNEE PAIN. PT HAS BEEN LESS IRRITABLE TOWARDS STAFF. PT IS PRESENT IN THE COMMUNITY AND INTERACTING WELL WITH PEERS AND STAFF. PT IS ATTENDING GROUPS. VITALS ARE STABLE, APPETITE IS GOOD.
--- NOTE | 2016-10-23 14:24 | CP SOUTH PROGRESS NOTE PSYCH ---
Psych (Inpt) Progress Note Progress Note Include the following elements, when applicable: Involvement in the active treatment of the patient with behavioral observations of the patient and the patient's response to the treatment. Review of the ongoing treatment process in the context of the treatment plan. Indication of how multi-disciplinary staff members are carrying out the treatment plan. Plans for future interventions and recommendations for revision of the treatment plan. Liaison with other physicians/providers. Progress Note: PSYCHIATRIST NOTE, 10/23/2016: I discussed this patient's slow and uneven progress to date, current mental status, treatment and discharge planning with staff team today in the daily morning ITTM and also met with her again myself in individual session. Patient was reported to have had difficulty settling down to a restful sleep last night, getting up at 3:30am to ask for a 1:1 session with the charge nurse who appropriately encouraged her to return to bed. However, unfortunately, patient did not receive any PRN Zyprexa at all over the course of the night. I have titrated [place] dose up to 900mg/day with no evidence of subjective or objective side effects to date; [place] level will be drawn tomorrow AM, 2016 and dose adjusted as appropriate over the coming weekend. Patient was more rational and coherent speaking with me one-on-one today but is still irritable, labile, impulsive irrational at times. I have increased dose of Zyprexa for HS tonight and hope patient sleeps better. Patient and I have come up with some ways in which she might be able to begin to separae from her parents; she is already in her own subsidized apartment which she lives in by herself but is spend most of the week at her parents home and the interaction between her and the rest of her family is becoming increasingly toxica; patient and I came up with the idea that she would set down a schedule for the week in which she would have her parents visit her at her place on Wednesdays and she would come to parents' home Sundays.
[2016-10-23 16:46] VITALS: BP 107/56
[2016-10-23 20:08] VITALS: BP 134/58
--- NOTE | 2016-10-23 22:43 | NUR ---
PT WAS UPSET AROUND 1930. PT WAS ASKED IF SHE WANTED SOMETHING FOR HER UPSETANCE AND DISCOMFORT. PT WAS GIVEN ZYPREXA 5 PRN AT THAT POINT. PSYCHIATRISTS MED ORDERS WERE CHANGED FOLLOWS: MELATONIN WAS DISCONTINUED. LITHIUM WAS INCREASED FROM 300 BID TO 300 AND 600. ZYPREXA AT HS WAS INCREASED FROM 10 TO 15. PT APPEARED MORE COMFORTABLE BY 1999.
--- NOTE | 2016-10-23 23:02 | NUR ---
1938 ORDERED DOSE OF LITHIUM GIVEN, PATIENT COMPLAINED OF BEING VERY UPSET AND ANXIOUS PRN ZYPREXA 5 MG GIVEN
--- NOTE | 2016-10-24 04:55 | NUR ---
PT RECEIVED PRN ZYPREXA 5 FOR ANXIETY ON EVENINGS WITH EFFECT. ORDER FOR CEPACOL LOZENGER PRN AVAILABLE. PT RECEIVED TRAZADONE 50 AT 2320. PT DEMEANING OF STAFF, BUT WENT TO BED AT 2330 AND APPEARED TO SLEEP WELL.
[2016-10-24 07:49] VITALS: BP 112/85
--- NOTE | 2016-10-24 09:07 | SOCIAL WORKER PROG NOTE PSYCH ---
Social Work Progress Note Progress Note Patient was visibly upset, so I spent individual time this morning as she clearly needed much reassurancs; and needed to re-focus from irritable mood. Stated that she had had a bad night last nighr; however, overall she feels that she is making progrss. Complaints varied widely from other patients not flushing toilets to having urine on bathroom floor to staff not reacting in a timely manner. We agreed that she would let this go, and that it was still very possible for her to continue to have a good day. Patient responded well to being listened to. Some of the personality issues were evident during the conversation; but, some complaints were legitamite. She was appreciative of some of the favors that staff had done for her. Reinforced the idea that she has to keep her cool, so that she will be able to leave and that it is very difficult living in a group situation; so the better she reacts the sooner that
--- NOTE | 2016-10-24 10:56 | NUR ---
PT APPEARS LESS LABILE THIS MORNING SHIFT-- NO OUTBURSTS/CRYING/THANH. PT IS BEING POLITE TO STAFF AND COMLPIANT/COOPERATIVE. ATTENDING ALL GROUPS AND STATED THAT HER GOAL TODAY WAS TO "GO TO GROUPS" AND "REDIRECT AGITATION" APPROPRIATELY. VS ARE STABLE AND DENIES ANY SI/HI TO THIS MHW.
[2016-10-24 12:42] VITALS: BP 122/70
--- NOTE | 2016-10-24 16:04 | SOCIAL WORKER PROG NOTE PSYCH ---
Social Work Progress Note Progress Note patient continued stay review submitted to [employer] requesting until
[2016-10-24 16:09] VITALS: BP 126/66
--- NOTE | 2016-10-24 16:10 | CP SOUTH PROGRESS NOTE PSYCH ---
Psych (Inpt) Progress Note Progress Note Include the following elements, when applicable: Involvement in the active treatment of the patient with behavioral observations of the patient and the patient's response to the treatment. Review of the ongoing treatment process in the context of the treatment plan. Indication of how multi-disciplinary staff members are carrying out the treatment plan. Plans for future interventions and recommendations for revision of the treatment plan. Liaison with other physicians/providers. Progress Note: PSYCHIATRIST NOTE, 10/24/2016: I discussed this patient's slow progress to date, current mental status, treatment and discharge planning with staff team today in the daily morning ITTM and also met with her again myself in individual session. Patient and I discussed her difficulties with sleep and settling down in the evening and decided to divide her HS Zyprexa, half at suppertime and half at bed; I have also encouraged nurses to offer PRN's of Zyprexa, especially in the evening/ night hours. Though patient's serum [place] level this morning was just 0.5mEq/ L it has been well tolerated to date at a dose of 900mg/day but not been at that level very long; we agreed to repeat level on 10/27/2016 on current dose; it is very important that this patient not have any side effects on [place] which would cause her to prematurely terminate trial; she is concerned about weight gain which is much more likely to be a significant issue with longer term treatment with Zyprexa and the latter medication may in future need to be switched to one less associated with weight gain. Patient's father has been understandably upset over his daughter's condition and hopes for her best recovery and this has undoubtedly influenced his at times demanding and "dissatisfied" behavior; he needs reassurance that his daughter is receiving the best and most appropriate care we can provide and that we take her recovery very seriously and are all working towards it, giving it our best professional efforts.
[2016-10-24 20:01] VITALS: BP 120/51
--- NOTE | 2016-10-24 21:15 | NUR ---
PT IS COOPERATIVE WITH STAFF AND PEERS, AND COMPLIANT WITH UNIT RULES. PT IS OFTEN IN [place], INTERACTING WELL WITH OTHERS. PT APPEARS SLIGHTLY ANXIOUS AT TIMES. MOOD IS STABLE, AFFECT IS EUTHYMIC TO FULL [place], COMMUNICATION IS ORGANIZED AND APPEARS NORMAL IN ALL RESPECTS, AND APPETITE IS NORMAL. PT DENIES SI AT THIS TIME.
--- NOTE | 2016-10-25 06:20 | NUR ---
PATIENT SLEPT FOR AROUND 3 1/2 HOURS TOTAL DURING THE NIGHT, IN STAGES; PRN BENADRYL AND SLEEPY TIME TEA GIVEN WITH MILD RESULTS.
[2016-10-25 07:38] VITALS: BP 108/52
[2016-10-25 12:14] VITALS: BP 120/49
--- NOTE | 2016-10-25 12:33 | CP SOUTH PROGRESS NOTE PSYCH ---
Psych (Inpt) Progress Note Progress Note Include the following elements, when applicable: Involvement in the active treatment of the patient with behavioral observations of the patient and the patient's response to the treatment. Review of the ongoing treatment process in the context of the treatment plan. Indication of how multi-disciplinary staff members are carrying out the treatment plan. Plans for future interventions and recommendations for revision of the treatment plan. Liaison with other physicians/providers. Progress Note: Pt notes that she has been better with AVH resolved with medications. Notes some knee/leg pain which has been long-standing made worse by exercise. Denies SI or HI. Current Medications Sig/Billie Start time Last Medication Dose Route Stop Time Status Admin Acetaminophen 1,000 MG Q4P PRN 10/24 1600 AC 10/24 PO 2022 Acetaminophen 500 MG Q4P PRN 10/20 1615 DC 10/22 PO 0118 Al Hydroxide/Mg 30 ML Q4-6 PRN PRN 10/17 2100 AC Hydroxide PO Benzocaine/Menthol 1 TEENA Q4H PRN 10/24 1824 AC 10/24 PO 1707 Benzocaine/Menthol 1 TEENA Q2P PRN 10/23 2224 DC PO Diphenhydramine HCl 50 MG AT BEDTIME NEED.. 10/24 1545 AC 10/25 PO 0033 Docusate Sodium 100 MG BID 10/18 1034 AC 10/25 PO 0809 [place] Carbonate 300 MG 0800 10/24 0800 AC 10/25 PO 0809 [place] Carbonate 600 MG 10/23 2000 AC 10/24 PO 1947 Methyl Salicylate 1 SARITA TID PRN 10/25 1230 UNVr TOP Olanzapine 10 MG 1700,0 10/24 1700 AC 10/24 PO 2137 Olanzapine 5 MG Q6H PRN 10/24 1545 AC PO Olanzapine 15 MG 2200 10/22 2200 DC 10/23 PO 2123 Olanzapine 5 MG Q4P PRN 10/21 1630 DC 10/23 PO 1940 Polyethylene Glycol 17 GM DAILY 10/18 1034 AC 10/22 PO 0758 Trazodone HCl 50 MG AT BEDTIME NEED.. 10/23 2224 DC 10/23 PO 10/24 2225 2321 Laboratory Tests 10/24 0702 Toxicology [place] (0.6 - 1.2 mmol/L) 0.5 L Vital Signs Date Time Temp Pulse Resp B/P Pulse O2 O2 Flow FiO2 Ox Delivery Rate 10/25 1214 94 120/49 10/25 0738 98.8 81 108/52 10/24 2000 98.5 78 120/51 10/24 1609 91 126/66 10/24 1242 82 122/70 MSE Appears as stated age. Cooperative behavior, good, appropriate eye contact. Nl speech rate and prosody. No psychomotor retardation or agitation. Mood fine Affect euthymic, appropriate, non-liable. Linear and goal directed thought process. Denies SI or HI. Does not appear to be responding to internal stimuli. Denies AVHs, paranoia, or delusions. I/J: limited A/P: Pt with hx of Bipolar disorder with psychosis now with improved mood and thought process. - Analgesic balm PRN for pain - Pt needs to have sleep study for CPAP upon discharge (had in past but unable to get CPAP 2/2 insurance issues) - Continue current medication regimen
--- NOTE | 2016-10-25 13:26 | NUR ---
PT IS COMPLIANT AND COOPERATIVE WITH UNIT RULES. PT IS OUT IN COMMUNITY INTERACTING WITH STAFF AND PEERS. PT IS ACTIVE IN GROUPS. PT MOOD IS STABLE WITH A FULL RANGE/BRIGHT AFFECT. PT GOAL THIS MORNING WAS TO COLOR, TALK TO DR ABOUT SNORING AND TO RELAX. PT DENIES SI THOUGHTS.
[2016-10-25 16:00] VITALS: BP 118/72
[2016-10-25 19:51] VITALS: BP 139/74
--- NOTE | 2016-10-25 20:47 | NUR ---
PT DISPLAYS LESS AGGITATION THIS EVENING, CALM AND SELF SOOTHES BY COLORING. PT ADVOCATES FOR HERSELF AND TALKS TO STAFF ABOUT HER NEEDS. INTERACTS WITH PEERS AND IS EMPATHETIC TOWARDS OTHER PTS FEELINGS (OTHER FEMALES ON THE UNIT). PT DENIES SI AT THIS TIME.
--- NOTE | 2016-10-26 06:13 | NUR ---
PATIENT SLEPT 1/2 OR MORE OF NIGHT, IMPROVEMENT OVER PREVIOUS NIGHT; PATIENT STILL AWAKE SEVERAL TIMES DURING THE NIGHT.
[2016-10-26 07:32] VITALS: BP 114/79
--- NOTE | 2016-10-26 09:51 | CP SOUTH PROGRESS NOTE PSYCH ---
Psych (Inpt) Progress Note Progress Note Include the following elements, when applicable: Involvement in the active treatment of the patient with behavioral observations of the patient and the patient's response to the treatment. Review of the ongoing treatment process in the context of the treatment plan. Indication of how multi-disciplinary staff members are carrying out the treatment plan. Plans for future interventions and recommendations for revision of the treatment plan. Liaison with other physicians/providers. Progress Note: Pt notes that topical analegic balm has been very helpful and would like to continue taking it upon discharge. She notes that she slept better but awoke during the night. DFA after used the bathroom. Denies SI or HI. Feels that thoughts have slowed down (previusly racing). Denies AVHs (since meds started). Current Medications Sig/Billie Start time Last Medication Dose Route Stop Time Status Admin Acetaminophen 1,000 MG Q4P PRN 10/24 1600 AC 10/24 PO 2022 Al Hydroxide/Mg 30 ML Q4-6 PRN PRN 10/17 2100 AC Hydroxide PO Benzocaine/Menthol 1 TEENA Q4H PRN 10/24 1824 AC 10/26 PO 0944 Diphenhydramine HCl 50 MG AT BEDTIME NEED.. 10/24 1545 AC 10/25 PO 0033 Docusate Sodium 100 MG BID 10/18 1034 AC 10/26 PO 0756 [place] Carbonate 300 MG 0800 10/24 0800 AC 10/26 PO 0756 [place] Carbonate 600 MG 10/23 2000 AC 10/25 PO 2004 Melatonin 5 MG AT BEDTIME 10/26 2200 AC PO Methyl Salicylate 1 SARITA TID PRN 10/25 1230 AC 10/26 TOP 0944 Olanzapine 10 MG 1700,2200 10/24 1700 AC 10/25 PO 2116 Olanzapine 5 MG Q6H PRN 10/24 1545 AC PO Polyethylene Glycol 17 GM DAILY 10/18 1034 AC 10/22 PO 0758 Laboratory Tests 10/24 0702 Toxicology [place] (0.6 - 1.2 mmol/L) 0.5 L Vital Signs Date Time Temp Pulse Resp B/P Pulse O2 O2 Flow FiO2 Ox Delivery Rate 10/26 0732 98.8 86 114/79 10/25 1951 97.6 94 139/74 10/25 1600 85 118/72 10/25 1214 94 120/49 MSE Appears as stated age. Cooperative behavior, good, appropriate eye contact. Nl speech rate and prosody. No psychomotor retardation or agitation. Mood good Affect euthymic, appropriate, non-liable. Linear and goal directed thought process. Denies SI or HI. Does not appear to be responding to internal stimuli. Denies AVHs, paranoia, or delusions. I/J: limited A/P: Pt with hx of Bipolar disorder with psychosis now with improved mood and thought process. - Analgesic balm PRN for pain - Pt needs to have sleep study for CPAP upon discharge (had in past but unable to get CPAP 2/2 insurance issues) - Continue current medication regimen, improved thought process and mood overall
[2016-10-26 11:36] VITALS: BP 104/68
--- NOTE | 2016-10-26 13:45 | NUR ---
out in community at times interactions are stable. coloring with peers and engaged in group activities. full range of affect. denied thoughts of self harm when asked. has been a little focused on meds but not to excess
[2016-10-26 15:57] VITALS: BP 125/66
[2016-10-26 19:21] VITALS: BP 105/65
--- NOTE | 2016-10-26 19:50 | NUR ---
PT IS STABLE WITH CONSTRICTED AFFECT, PRESENT WITHIN THE COMMUNITY WITH MINIMAL INTERACTIONS WITH PEERS/STAFF MEMBERS, PT SEEMS TO BE ON THE PERIPHERY TODAY. PT IS APPROPRIATE TO THE UNIT AND COMPLIANT, COOPERATIVE, CALM. PT HAS BEEN COLORING/READING ALL DAY AND HELPING PEERS WITH TASKS AROUND THE UNIT. VS ARE STABLE AND DENIES ANY SI/HI TO THIS MHW.
--- NOTE | 2016-10-27 07:16 | NUR ---
PATIENT UP TO BATHROOM ONCE, OTHERWISE SLEPT ALL NIGHT.
[2016-10-27 07:36] VITALS: BP 113/70
[2016-10-27 12:10] VITALS: BP 124/51
--- NOTE | 2016-10-27 13:05 | SOCIAL WORKER PROG NOTE PSYCH ---
Social Work Progress Note Progress Note Patient presents today with somewhat flat affect and mood. Patient reports having an "ok" weekend but is eager to discharge the hospital. Patient feels she is ready to return home, she reports less racing thoughts and clearer thinking. Together we discused her aftercare plan and I suggested IOP as a safe step down from this level of care. Patient was resistent to this plan, reporting that she has completed IOP numerous times before. Patient finally did agree to try IOP again and would like to do IOP program instead of [facility]. Patient is eager to discharge and wishes to leave tomorrow. Patient has intake at [facility] for Thursday at 10:15am.
--- NOTE | 2016-10-27 13:34 | NUR ---
PT STATED HER GOAL WAS TOFINAALIZE SOME DISCHARGE PLANS. SHE STATED SHE WAS "TIRED OF BEING HERE" AND IS READY TO GO HOME. SHE IS CALM AND COOPERATIVE AND COMPLIANT WITH HER MED REGIME. WHEN ASKED PT DENIED ANY SUICIDAL THOUGHTS. SHE INTERACTS WITH STAFF AND PEERS IN A FRIENDLY MANNER
--- NOTE | 2016-10-27 15:48 | CP SOUTH PROGRESS NOTE PSYCH ---
Psych (Inpt) Progress Note Progress Note Include the following elements, when applicable: Involvement in the active treatment of the patient with behavioral observations of the patient and the patient's response to the treatment. Review of the ongoing treatment process in the context of the treatment plan. Indication of how multi-disciplinary staff members are carrying out the treatment plan. Plans for future interventions and recommendations for revision of the treatment plan. Liaison with other physicians/providers. Progress Note: PSYCHIATRIST NOTE, 10/27/2016: I discussed this patient's slow progress to date, current mental status, treatment and discharge planning with staff team today in the daily morning ITTM and also met with patient again myself in individual session. Patient had not slept well 10/24 and 10/25/2016 but got more sleep last night ("I was able to get back to sleep after going to the bathroom"). She did not have to utiilize any PRN Zyprexa over the weekend. Serum [place] level this morning was 0.5mEq/L on current dose of 900mg/day; after once again discussing the R/B/SE of [place], particularly at high dose/serum concentrations, patient agreed to increasing dose today by 150mg; we will repeat level in AM 10/29/2016 prior to planned intake at [facility] on that date at 10:15am. Patient told me she got tired in the evening when taking Zyprexa 10mg at 5pm and HS; we decided to move 5mg to HS, so she will now receive 5mg at 5pm and 15mg HS; it may be possible to eliminate the 5pm dose in the near future. Patient told me her parents are happy with the improvements she is making, remain supportive, though she told me they didn't visit her over Easter weekend. Patient less pressured and irritable, reporting improvement in racing thoughts; her mood is generally better now.
[2016-10-27 16:20] VITALS: BP 132/81
[2016-10-27 19:38] VITALS: BP 120/75
--- NOTE | 2016-10-27 21:12 | NUR ---
PT IS CALM, COOPERATIVE WITH STAFF AND PEERS, AND COMPLIANT WITH UNIT RULES. PT IS OFTEN IN [place], INTERACTING WELL WITH OTHERS. MOOD IS STABLE, AFFECT APPEARS EUTHYMIC TO FULL RANGE, COMMUNICATIONIS ORGANIZED AND APPEARS NORMAL IN ALL RESPECTS, AND APPETITE IS NORMAL. PT DENIES SI AT THIS TIME.
--- NOTE | 2016-10-28 06:23 | NUR ---
PT WAS UP TO TOILET X 3 IN THE NIGHT. PT APPEARED TO SLEEP WELL. PT MUCH MORE SUBDUED. PT DC FOR THURSDAY.
[2016-10-28 07:39] VITALS: BP 120/69
--- NOTE | 2016-10-28 11:37 | NUR ---
PT IS STABLE WITH FULL RANGE OF AFFECT, COMPLIANT, COOPERATIVE, PRESENT WITHIN THE COMMUNITY, INTERACTING WITH PEERS/STAFF MEMBERS, APPROPRIATE COMMUNICATION WITH OTHERS. PT IS ATTENDING GROUPS THIS MORNING AND STATED THAT HER GOAL WAS TO FIND OUT MORE REGARDING HER DC PLANS. VS ARE STABLE AND DENIES ANY SI/HI TO THIS MHW.
[2016-10-28 12:13] VITALS: BP 110/54
--- NOTE | 2016-10-28 14:17 | SOCIAL WORKER PROG NOTE PSYCH ---
Social Work Progress Note Progress Note Patient presents with normal mood today and affect congruent to mood. She has been seen attending groups on the unit throughout the day and interacting appropriately with peers and staff. Patient continues to express a desire to discharge the hospital and is aware that she is tentatively discharging tomorrow. She has agreed to attend IOP at [facility] at this time and has orientation tomorrow at 11am. She also has asppointment with Sisi Durham APRN on 10/30/16 for med management. Patient denies SI/HI/AH/VH at present.
[2016-10-28 15:48] VITALS: BP 124/57
--- NOTE | 2016-10-28 17:42 | CP SOUTH PROGRESS NOTE PSYCH ---
Psych (Inpt) Progress Note Progress Note Include the following elements, when applicable: Involvement in the active treatment of the patient with behavioral observations of the patient and the patient's response to the treatment. Review of the ongoing treatment process in the context of the treatment plan. Indication of how multi-disciplinary staff members are carrying out the treatment plan. Plans for future interventions and recommendations for revision of the treatment plan. Liaison with other physicians/providers. Progress Note: PSYCHIATRIST NOTE, 10/28/2016: I discussed this patient's progress to date, current mental status, treatment and discharge planning with staff team today in the daily morning ITTM and also met with her again myself in individual session. Patient denies any side effects on higher dose of [place] and is still positive about continuing this trial. I will repeat serum [place] level tomorrow AM prior to planned discharge to [facility]; patient is also willing to f/u with that program and is aware that other services for young adults are available through [facility]. Patient's affect is bright and mood improving with no indication of irritability and no complaints expressed to me even when I asked her directly if she had any at this time. Patient expressed satisfaction overall with her treatment and felt she has improved over course in hospital and feels ready for discharge. Patient is feeling less tired in the evening after moving half of suppertime dose of Zyprexa to HS, and it may soon be possible to reduce daily dose from 20mg to 15mg/day, but I will not do this with dsicharge approaching so soon. Patient has not required any PRN's of Zyprexa in recent days.
[2016-10-28 20:07] VITALS: BP 123/69
--- NOTE | 2016-10-28 21:02 | NUR ---
PT IS CALM, COOPERATIVE WITH STAFF AND PEERS, AND COMPLIANT WITH UNIT RULES. PT IS OFTEN IN [place], INTERACTING WELL WITH OTHERS. MOOD IS STABLE, AFFECT IS EUTHYMIC TO FULL RANGE, COMMUICATION IS ORGANIZED AND APPEARS NORNMAL IN ALL RESPECTS, AND APPETITE IS NORMAL. PT DENIES SI AT THIS TIME.
--- NOTE | 2016-10-29 02:52 | NUR ---
Slept well, no complaints offered.
[2016-10-29 07:11] LABS: LITHIUM 0.8 mmol/L (0.6-1.2)
[2016-10-29 07:57] VITALS: BP 115/63
--- NOTE | 2016-10-29 08:02 | NUR ---
PT IS SCHEDUL[place] FOR [place] [facility] SHE REPORTS AND DEMONSTRATES IMPROVEMENT IN HER MOOD AND ABILITY TO FUNCTION. SHE DENIES ANY THOUGHTS OF SUICIDE OR SELF HARM. HER AFFECT IS FULL RANGE AND SHE IS LOOKING FORWARD TO GOING HOME. SHE VERBALIZES A GOOD UNDERSTANDING OF HER MED REGIME AND TREATMENT PLAN. SHE AGREES TO FOLLOW UP WITH [facility] AND HER INTAKE APPT IS TODAY. PT IS GIVEN EDUCATION R/T MANAGING HER BIPOLAR D/O AND ON PREVENTING SUICIDE
[2016-10-29] MEDS ORDERED: OLANZAPINE5 M2 PO (10:23)
[2016-10-29] MEDS ORDERED: LITHIUM CARBON300 M4 PO (10:23)
[2016-10-29] MEDS ORDERED: OLANZAPINE15 M1 PO (10:23)
[2016-10-29] MEDS ORDERED: LITHIUM CARBON150 M1 PO (10:24)
[2016-10-29] MEDS ORDERED: MELATONIN5 M7 PO (10:24)
--- NOTE | 2016-10-29 10:27 | SOCIAL WORKER PROG NOTE PSYCH ---
Social Work Progress Note Progress Note Patient to discharge the hospital today. Patient reports feeling ready to return home today and has agreed to follow up with treatment at [facility]. Patient has IOP orientation at [facility] today at 11am. Patient also has med appointment with Denita Durham APRN tomorrow at 8:40AM. Patient is able to contract for safety at this time and reports feeling safe for discharge.
--- NOTE | 2016-10-29 11:39 | DISCHARGE SUMMARY REPORT-PSYCH ---
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." Psy Discharge Primary Diag: Bipolar I Disorder, Mixed Hospital Course Significant Lab Findings: HDL = 38; T4 = 11.8; RBC = 4.09; 9.8% monos with 0.7% mono abs; NIMISHA = less than 10.0; urine for drugs of abuse--negative (for complete details of all normal range laboratory data for this admission, see the electronic medical record) Course Complications: none Consultations: patient was seen for an admission medical H&P by Jake Martinez M.D., and followed medically during this admission by the hospitalist staff/[facility] medical attending physicians Allergies: Coded Allergies: No Known Allergies (10/17/16) Hospital Course/TX Response: (see also, all admission/initial assessments, daily M.D./TAILOR FITTER and ZYGLO INSPECTOR progress notes from this admission in the electronic medical record) Initial impression on admission was of a young woman presenting with manic symptoms resulting in grave disability and related poor medication compliance. Invega was replaced with Risperdal at 4mg HS and dose of Wellbutrin was reduced to 150mg daily. Patient was in agreement with the above changes. PRN Ativan and trazodone were discontinued. Retrial on [place] carbonate was discussed though patient at first reluctant due to memory of past "weight gain" on this medication. On 10/21/2016, a family meeting was held with patient, her parents and brother Trey; mother and brother's diagnoses of bipolar disorder and treatments for same were discussed. Patient noted that she had experienced hyperprolactinemia on Inve[place]; we were concerned of a similar risk on Risperdal and a temporary switch to Zyprexa was agreed upon. Patient also said she would make transition to [facility] for aftercare and eventually it was decided that she would attend the [facility] program, as she had been receiving her outpatient care with this provider. Dose of Zyprexa was titrated to symptoms and well tolerated. Patient agreed to a retrial on [place]; dose was titrated to 1,050mg with serum concentration of 0.8mEq/L prior to discharge; Li+ was well tolerated at this dose. A meeting was held with the patient and her mother prior to discharge. By date of discharge, patient was much improved, no longer irritable or excitable; she was bright in affect, euthymic, happy to be returning to her parents' home and positive with regard to IOP attendance; there was no evidence at that time of suicidal or homicidal ideation, plans, intent or impulses, and patient was well aware of her safety plan should she ever in future coming to believe that she is at acute risk of harming herself or others. Discharge HBIPS - Tobacco Use Treatment Offered Post DC Medications Offered: NA-No Tob Use >30 days Post DC Tobacco Treatment Plan: NA-No Tobacco use >30days - EtOH/Drug Use D/O Treatment Offered Post DC Medications Offered: NA-No EtOH/Drug Use D/O Post DC EtOH/SubAbuse TX Plan: NA-No EtOH/Drug Use D/O Metabolic Screening - Screen if on a Neuroleptic Medication - Metabolic screening should include: - Blood Pressure, BMI, Glucose or Hgb A1c, & a - Lipid profile from within the past 365 days. Metabolic Screening () Not Applicable, patient not on a neuroleptic. OR ([x]) Patient on a neuroleptic(s) . Enter below results for Glucose or Hemoglobin A1C, and lipid panel if obtained during the last 365 days. BMI: 23.400 Blood Pressure: 115/63 Laboratory Results (If applicable): [x] glucose = 95 (drawn 10/17/2016) glycos hgb A1c = 5.2 (drawn 10/19/2016) cholesterol = 165 (all drawn 10/19/2016) triglycerides = 145 HDL = 38 LDL = 98 Discharge Instructions General Discharge Information Discharge Medications: Discharge Medications (Dose, route, frequency, indications): (see also Wili progress note on date of discharge, 10/29/2016) I [facility] in [place], [place] on day of discharge, 10/29/2016 : [place] carbonate, 300mg: i daily in AM ii evenings; #42 with no refill (mood stabilization) [place] carbonate, 150mg: i evenings; #14 with no refill (mood stabilization) (patient currently prescribed 1,050mg/day of [place] carbonate) Zyprexa, 15mg: i nightly at HS; #14 with no refill (clarification of thought) Zyprexa, 5mg: i PRN racing thoughts preventing restful sleep; #14 with no refill (patient currently prescribed 15-20mg/day of Zyprexa) patient may also utilize melatonin, 5mg OTC PRN for DFA (patient does not smoke tobacco or drink alcohol) Multiple Neuroleptics: ([x]) Not Applicable OR Document below three failed attempts at monotherapy, or a plan to taper to monotherapy, or augmentation of Clozapine. () Patient's Diet: regular/heart healthy Patient's Activity: without restrictions DC Disposition: to parents' home accompanied by mother Recommendations: I would recommend repeating serum [place] level in a few weeks or prior to any consideration of increasing current dose; following an interval of outpatient stabilization, I would advise beginning a slow/gradual tapering of current Zyprexa dose. Referred To: Patient was referred directly back to resume her ongoing senior living outpatient treatment with [facility] where she was scheduled for an intake with [facility] for 11am on the morning of discharge, 10/29/2016, and was to be driven directly there by her mother. Patient also had a prescriber's appointment with Sisi Alvarez APRN, for the day following discharge, 10/30/2016, at 8:45am. Copies To: BRUNILDA SHAFFER APRN
--- NOTE | 2016-10-29 11:39 | [facility] PROGRESS NOTE PSYCH ---
Psych (Inpt) Progress Note Progress Note Include the following elements, when applicable: Involvement in the active treatment of the patient with behavioral observations of the patient and the patient's response to the treatment. Review of the ongoing treatment process in the context of the treatment plan. Indication of how multi-disciplinary staff members are carrying out the treatment plan. Plans for future interventions and recommendations for revision of the treatment plan. Liaison with other physicians/providers. Progress Note: PSYCHIATRIST NOTE (FAMILY MEETING/DISCHARGE), 10/29/2016: I discussed this patient's progress to date, current mental status, treatment and discharge plans with staff team today in the daily morning ITTM and also met again with patient and her mother in a family session prior to discharging her to intake for [facility]'s IOP at 11am today; she will also see Sisi Alvarez APRN, next tomorrow morning, 10/30/2016, at 8:45am. Patient's mother was happy/smiling today, pleased with how well her daughter has done here and supportive of continuing intensive (outpatient) treatment at [facility]. Patient was euthymic, bright in affect, happy to be returning home and positive about attending IOP; there was no evidence of suicidal or homicidal ideation, plans, intent or impulses. Serum [place] level was up to 0.8mEq/L on current dose of 1 ,050mg/day; I went over once again the symptoms of [place] excess, need for adequate fluid intake, etc., and recommended that no increase in current dose of [place] be made until and unless a repeat level is drawn first. [facility] in [place], [place] on day of discharge: [place] carbonate, 300mg; i daily in AM ii evenings; #42 with no refill (mood stabilization) [place] carbonate, 150mg: i evenings; #14 with no refill (mood stabilization) (patient is currently taking 1,050mg/day of [place] carbonate) Zyprexa, 15mg: i nightly at HS; #14 with no refill (clarify thinking) Zyprexa, 5mg: i PRN racing thoughts leading to poor sleep; #14 with no refill patient may also use melatonin, 5mg OTC PRN for DFA
== END 2016-10-29 10:50 | DRG 885 ==
LOC: ENRESERVDT → ENRESERVTM → ERH 02:24 → ERHI 16:34 → CP SOUTH 16:34 → ENPENDDIS 10-29 11:00
PROVIDERS: Emergency Medicine; Psychiatry & Neurology Psychiatry; ADMIT Psychiatry & Neurology Addiction Medicine
DX: F31.60 Bipolar disorder, current episode mixed, unspecified (principal)
CPT/HCPCS: 36415; 80307; 96372; 96374; G0480; J1200; J1630; J3490